=== PATIENT | female | born 1985 | race Caucasian/White ===

== ENCOUNTER 2018-08-17 07:31 | Inpatient (IN) ==
[2018-08-17] MEDS ORDERED: LACTATED RINGER'S 1,000 ML IV PRN (07:45)
[2018-08-17] MEDS ORDERED: OXYTOCIN 30 UNITS/500 ML BAG IV PRN ×2 (07:45→08:48)
[2018-08-17] MEDS ORDERED: LACTATED RINGER'S 1,000 ML IV SCH (07:45)
[2018-08-17 08:02] LABS: Hematocrit (blood only) 41.1 % (37-47); Hemoglobin 14.3 g/dL (12.0-16.0); Mean Corpuscular Volume 90.1 fL (80-100); Mean Platelet Volume 10.4 fL (7.4-10.4); Platelet Count 194 K/uL (130-400); RDW Coefficient of Variation 13.6 % (11.5-14.5); RDW Standard Deviation 44.5 fL (36.4-46.3); Red Blood Count 4.56 M/uL (4.2-5.4); White Blood Count 14.77 K/uL (4.8-10.8)
[2018-08-17 08:06] LABS: Mean Corpuscular Hgb Conc 34.8 g/dL (32-36)
[2018-08-17] MEDS ORDERED: PATIENT'S ALLERGY INFO NEEDS ENTERED SCH (08:30)
[2018-08-17] MEDS: OXYTOCIN 30 UNITS/500ML NSS ONE ×2 (08:33→08:48)
[2018-08-17] MEDS ORDERED: ACETAMINOPHEN 325 MG TAB PO PRN (08:48)
[2018-08-17] MEDS ORDERED: BENZOCAINE 20% AER SPR 82.5 GM CAN EXT PRN (08:48)
[2018-08-17] MEDS ORDERED: SUPERCREAM 0.870% 15 GM JAR EXT PRN (08:48)
[2018-08-17] MEDS ORDERED: ACETAMINOPHEN W/CODEINE #3 1 TAB PO PRN (08:48)
[2018-08-17] MEDS ORDERED: HYDROCORTISONE ACETATE 25 MG SUPP PR PRN (08:48)
[2018-08-17] MEDS ORDERED: IBUPROFEN 600 MG TAB PO PRN (08:48)
[2018-08-17] MEDS ORDERED: OXYCODONE/ACETAMINOPHEN 5mg/325mg TAB PO PRN (08:48)
[2018-08-17] MEDS ORDERED: DIPHTHERIA/TETANUS/PERTUSSIS 0.5 ML SYR/VIAL IM ONE (08:48)
[2018-08-17] MEDS ORDERED: BISACODYL 10 MG SUPP PR PRN (08:48)
[2018-08-17] MEDS ORDERED: PRENATAL VITAMIN 1 TAB PO SCH (09:00)
[2018-08-17] MEDS ORDERED: FERROUS SULFATE 325 MG TAB PO SCH (09:00)
--- NOTE | 2018-08-17 11:12 | Delivery Summary ---
DATE OF OPERATION: 08/17/2018 DELIVERY NOTE: Mrs. Dolan is a 2, para 2, due date is 08/17/2018. She was admitted in active labor. She was fully dilated on the first time I checked her, and the first time I checked her, she had severe bradycardia. This was managed by putting her on her back, giving her mask oxygen, stimulating the head and gradually heart rate came up. After the heart rate came up into the normal range and remained there without stimulation, felt comfortable to rupture the membranes. At that time, moderate meconium was noted. Heart rate continued to stay into an acceptable range with good variability. Contractions were about every 5 minutes. I had her push with each contraction and she was able to bring the head down and pushed the out and about 4 contractions. Once the head was delivered, it was suctioned through the mouth and the nose. Delivered the infant without difficulty. I clamped and cut the cord, collected cord blood. Then, I actually had to run to another room to do another delivery. Before I left the room, I noted that she had a bleeding periurethral laceration. I came back. The placenta was still not delivered with massage and the IV Pitocin running, I delivered the placenta intact. It was meconium stained. I sent it to pathology. There was a midline clitoral laceration right above the urethral opening. I infiltrated this area with local. Then, I used a continuous 3-0 chromic to sew the edges together and to stop the bleeding. After that, I inserted a red rubber Guzmán to make sure that the urethra was patent. I showed the nurses where the urethral opening was in relationship to the suture. Vag exam revealed no hematoma formation or sponges in the vagina. Hemostasis was good. Estimated blood loss was 100 mL. Apgars in my estimation were in the range of 8-9. The patient tolerated the procedure and delivery well. I attest to the content of the Intraoperative Record and any orders documented therein. Any exception s are noted below.
[2018-08-17] MEDS: DOCUSATE SODIUM 100 MG CAP PO SCH (21:16)
[2018-08-18 06:13] LABS: Hematocrit (blood only) 37.6 % (37-47); Hemoglobin 12.9 g/dL (12.0-16.0); Mean Corpuscular Hgb Conc 34.3 g/dL (32-36); Mean Corpuscular Volume 91.9 fL (80-100); Mean Platelet Volume 10.3 fL (7.4-10.4); Platelet Count 197 K/uL (130-400); RDW Coefficient of Variation 13.9 % (11.5-14.5); Red Blood Count 4.09 M/uL (4.2-5.4); White Blood Count 11.62 K/uL (4.8-10.8)
[2018-08-18] MEDS: DOCUSATE SODIUM 100 MG CAP PO SCH (08:21)
--- NOTE | 2018-08-18 09:27 | Obstetrical Progress Note ---
Date of Service August 18, 2018 Subjective Patient is seen and examined. She feels well, no complaints. Likes to be discharged today Ambulating without dizziness Voiding without difficulty Tolerating regular diet with out N&V Bleeding is minimal No fever/ chills/ CP/ SOB/ N&V/ Leg pain Breast feeding without problems Vital Signs Temp Pulse Pulse Pulse Pulse Resp BP 08/18/18 08:00 37.1 C 80 16 08/18/18 04:20 36.3 C L 67 18 08/18/18 00:00 36.9 C 86 18 08/17/18 21:45 37.0 C 106 H 18 08/17/18 16:35 36.7 C 63 18 08/17/18 11:20 36.8 C 67 20 08/17/18 11:00 36.9 C 20 08/17/18 10:55 83 118/57 L 08/17/18 10:39 82 116/62 08/17/18 10:24 86 115/62 08/17/18 10:09 87 116/68 08/17/18 09:54 71 112/70 08/17/18 09:39 78 132/77 BP BP Pulse Ox 08/18/18 08:00 94/60 L 97 08/18/18 04:20 106/68 08/18/18 00:00 111/71 08/17/18 21:45 100/67 08/17/18 16:35 110/67 98 08/17/18 11:20 108/72 08/17/18 11:00 08/17/18 10:55 08/17/18 10:39 08/17/18 10:24 08/17/18 10:09 08/17/18 09:54 08/17/18 09:39 08/18/18 Range/Units 05:41 WBC 11.62 H (4.8-10.8) K/uL RBC 4.09 L (4.2-5.4) M/uL Hgb 12.9 (12.0-16.0) g/dL Hct 37.6 (37-47) % MCV 91.9 (80-100) fL MCH 31.5 (25-34) pg MCHC 34.3 (32-36) g/dL RDW Std Deviation 46.0 (36.4-46.3) fL RDW Coeff of Jenifer 13.9 (11.5-14.5) % Plt Count 197 (130-400) K/uL MPV 10.3 (7.4-10.4) fL PE: General: Alert, orientedx3, NAD Abd: soft, NT, fundus firm, below Umbilicus Perineum intact, Lochia rubra minimal Ext; NT, no edema AP: 32 yo s/p , ppd# 1 VSS Afebrile doing well Continue routine care All questions were answered Discussed when to call D/C home , f/u in office Physical Exam Vital Signs (Past 24 Hours): Last Vital Signs Temp 37.1 C 08/18/18 08:00 Pulse 80 08/18/18 08:00 Resp 16 08/18/18 08:00 BP 94/60 L 08/18/18 08:00 Pulse Ox 97 08/18/18 08:00
[2018-08-18] MEDS ORDERED: BISACODYL 5 MG TABEC PO SCH (20:00)
== END 2018-08-18 18:40 | disposition home or self-care (01) | DRG 807 ==
LOC: OPB 07:31 → 4S1 07:34 → 4S2 11:37

== ENCOUNTER 2021-11-10 08:07 | Inpatient (IN) ==
--- NOTE | 2021-11-01 15:32 | Anesthesiology Consultation ---
Date of Service November 01, 2021 Assessment & Plan (1) Encounter for pre-operative examination: - COVID screening: Per assessment on 11/01: No known COVID-19 positive contacts or current COVID-19 related symptoms. Travel screen negative. Patient vaccinated . Surgeon arranging preop COVID testing. Awaiting results. - Check test AM DOS Chart Review Chart Review: Acceptable Risk for Surgery and Patient NOT seen in Pre Admission Testing History Surgery Operation Date: 11/10/21 09:45 Proposed Procedures p Total Laparoscopic Hysterectomy, Bilateral Salpingectomy, Cystoscopy, Possible Laparotomy - Arron Sams MD Height/Weight Height: 5 ft 8.75 in Weight: 72.575 kg Allergies Allergy/AdvReac Type Severity Reaction Status Date / Time amoxicillin Allergy Mild Hives Verified 11/01/21 14:40 Medications Home Medications Medication Instructions Recorded Confirmed Last Taken L.acidophilus,rhamnosus-B.breve-S.thermophilus 1 tab PO QAM 11/01/21 11/01/21 Unknown 3 billion cell chew tab biotin 1 mg capsule 1 mg PO DAILY 11/01/21 11/01/21 Unknown bupropion HCl 150 mg tablet,12 hr 300 mg PO QAM 11/01/21 11/01/21 Unknown sustained-release (Wellbutrin SR) escitalopram oxalate 20 mg tablet 20 mg PO QAM 11/01/21 11/01/21 Unknown (Lexapro) magnesium oxide 250 mg PO QAM 11/01/21 11/01/21 Unknown multivitamin 1 cap PO QAM 11/01/21 11/01/21 Unknown vitamin B complex 1 cap PO DAILY 11/01/21 11/01/21 Unknown Past Medical History Medical History (Updated 11/01/21 @ 15:31 by Ioana Szymanski) Anxiety Chronic pelvic pain in female Endometriosis History of COVID-19 Dx 05/2021 - no symptoms depression Spontaneous Past Family History Family History Sister Diabetes Aunt Diabetes Past Surgical History Surgical History H/O knee surgery left History of tonsillectomy Social History Smoking Status: Former smoker Do You Dip or Chew Tobacco: No Hx Alcohol Use: Yes Alcohol type: beer and wine alcohol intake frequency: a few times a week Hx Substance Use: No substance use type: does not use Testing Laboratory Results 10/31/21 WBC 6.96 H/H 14.3/42.6 PLATELETS 304 SODIUM 140 POTASSIUM 4.6 CHLORIDE 103 CO2 25 BUN 17 CREATININE 0.9 GLUCOSE 115
[~2021-11-10 08:07] MED LIST: ALLERGY Noted to ORDERED Medication SCH; LACTATED RINGER'S 1,000 ML IV SCH; LR 15ML/HR IV SCH
[2021-11-10] MEDS ORDERED: BUPIVACAINE 0.5 % 5 MG/1 ML MPF 30ML VIAL ONE (08:53)
[2021-11-10] MEDS ORDERED: EPINEPHrine INJ 1 MG/ML AMP ONE (08:53)
[2021-11-10] MEDS ORDERED: fentaNYL citrate 100 MCG/2 ML VIAL IV PRN (09:00)
[2021-11-10] MEDS ORDERED: ONDANSETRON INJ 2 MG/ML 2 ML VIAL IV PRN ×2 (09:00→12:25)
[2021-11-10] MEDS ORDERED: ATROPINE SULFATE 0.1 MG/ML 10ML SYR IV PRN (09:00)
[2021-11-10] MEDS ORDERED: ePHEDrine sulfate 50 MG/ML AMP IV PRN (09:00)
--- NOTE | 2021-11-10 09:02 | History & Physical Bridge Note ---
Date of Service November 10, 2021 History & Physical Bridge Note I have examined the patient, reviewed the History & Physical and in the interval since the performance of the History & Physical I have noted the following changes of clinical significance: no changes noted
[2021-11-10] MEDS ORDERED: MIDAZOLAM HCL 1 MG/ML 2ML VIAL ONE (09:07)
[2021-11-10] MEDS ORDERED: LIDOCAINE 2% 2 ML VIAL/AMP(20MG/ML) INFIL ONE (09:07)
[2021-11-10] MEDS ORDERED: ONDANSETRON INJ 2 MG/ML 2 ML VIAL ONE ×2 (09:07→11:26)
[2021-11-10] MEDS ORDERED: PROPOFOL IV EMULSION 10 MG/ML 20 ML VIAL IV ONE (09:07)
[2021-11-10] MEDS ORDERED: DEXAMETHASONE SOD INJ 4 MG/ML VIAL ONE (09:07)
[2021-11-10] MEDS ORDERED: ROCURONIUM BROMIDE 10 MG/ML 5 ML VIAL IV ONE (09:07)
[2021-11-10] MEDS ORDERED: fentaNYL citrate 100 MCG/2 ML VIAL ONE (09:07)
[2021-11-10] MEDS ORDERED: SCOPOLAMINE 1 MG TDSY TD ONE (09:12)
[2021-11-10] MEDS ORDERED: ACETAMINOPHEN 1000 MG/100 ML IV IV ONE (09:14)
[2021-11-10 09:22] LABS: Pregnancy Test, Serum Negative (Negative)
[2021-11-10] MEDS ORDERED: ceFAZolin 330 MG/ML 1 GM VIAL ONE ×3 (09:50→09:55)
[2021-11-10] MEDS ORDERED: ePHEDrine sulfate 50 MG/ML AMP ONE (10:09)
[2021-11-10] MEDS ORDERED: FLOSEAL HEMOSTATIC MATRIX 10ML TOP ONE (10:29)
[2021-11-10] MEDS ORDERED: GLYCOPYRROLATE 0.2 MG/ML VIAL ONE (11:12)
[2021-11-10] MEDS ORDERED: KETOROLAC 30 MG/ML VIAL ONE (11:12)
[2021-11-10] MEDS ORDERED: NEOSTIGMINE METHYLSULFATE 1 MG/ML 10ML VIAL ONE (11:12)
[2021-11-10] MEDS ORDERED: HYDROmorphone INJ 2 MG/ML SYR/VIAL ONE (11:13)
[2021-11-10] MEDS ORDERED: IBUPROFEN 600 MG TAB PO PRN (12:25)
[2021-11-10] MEDS ORDERED: PROMETHAZINE HCL 25 MG in SODIUM CHLORIDE 0.9% 50 ML IV PRN (12:25)
[2021-11-10] MEDS ORDERED: PROMETHAZINE HCL 12.5 MG in SODIUM CHLORIDE 0.9% 50 ML IV PRN (12:25)
[2021-11-10] MEDS ORDERED: oxyCODONE/ACETAMINOPHEN 5mg/325mg TAB PO PRN ×2 (12:25)
[2021-11-10] MEDS ORDERED: SIMETHICONE 80 MG CHEW PO PRN (12:25)
[2021-11-10] MEDS ORDERED: MAGNESIUM HYDROXIDE SUSP 30 ML UDC PO PRN (12:25)
[2021-11-10] MEDS ORDERED: ZOLPIDEM TARTRATE 5 MG TAB PO PRN (12:25)
[2021-11-10] MEDS ORDERED: KETOROLAC 30 MG/ML VIAL IV PRN (12:25)
--- NOTE | 2021-11-10 12:25 | Post Operative Brief Note ---
Immediate Post Op Note v1 Date of Surgery November 10, 2021 Pre & Post Diagnosis Operation Date: 11/10/21 09:50 Pre-Op Diagnosis: Chronic Pelvic Pain Post-Op Diagnosis: Chronic Pelvic Pain I identified the patient and participated in the time-out.: Yes Procedure Operation Date: 11/10/21 09:50 Actual Procedures p Total Laparoscopic Hysterectomy, Bilateral Salpingectomy, Cystoscopy(Not Applicable) - Arron Sams MD Surgeon Arron Sams MD Button Cutting Machine Operator kerline chase Estimated Blood Loss 5 Findings Consistent with Post-Op Diagnosis Drains Guzmán Catheter (200ml urine output)
[2021-11-10] MEDS ORDERED: LACTATED RINGER'S 1,000 ML IV SCH (12:30)
--- NOTE | 2021-11-10 13:59 | Anesthesiology Progress Note ---
Date of Service November 10, 2021 Anesthesia Post Procedure Vital Signs Vital Signs: Temp Pulse Pulse Resp BP Pulse Ox 11/10/21 13:45 97.5 F L 71 16 97/60 L 98 11/10/21 13:30 80 16 94/56 L 100 11/10/21 13:15 71 13 94/57 L 99 11/10/21 13:00 72 14 97/57 L 98 11/10/21 12:50 97.0 F L 80 15 95/54 L 95 11/10/21 12:40 77 16 91/57 L 96 11/10/21 12:30 83 16 103/63 96 11/10/21 12:20 76 16 101/65 100 11/10/21 12:14 97.7 F 85 16 99/66 L 98 11/10/21 08:48 98.4 F 59 L 18 111/77 98 Transfer of Care Handoff Completed per policy Notes Mental Status: alert / awake / arousable and participated in evaluation Patient Amnestic to Procedure: Yes Nausea / Vomiting: adequately controlled Pain: adequately controlled Airway Patency, RR, SpO2: stable & adequate BP & HR: stable & adequate Hydration State: stable & adequate Anesthetic Complications: no major complications apparent and Pt Satisfied with anesthetic care
[2021-11-10] MEDS: CHECK SCOPOLAMINE PATCH PLACEMENT SCH (16:55)
--- NOTE | 2021-11-10 18:26 | Operative Report (OR) ---
DATE OF SURGERY: 11/10/2021. INDICATION FOR SURGERY: This is a 35-year-old with chronic pelvic pain, failed medical therapy. POSTOPERATIVE DIAGNOSES: Chronic pelvic pain, failed medical therapy. SURGEON: Arron Sams MD. PRODUCTION BORING MACHINE OPERATOR: Beckie Cotton PA-C ATTESTATION FOR PRODUCTION BORING MACHINE OPERATOR: Rabbit Dresser was necessary to help with retraction and manipulation of instr uments in order to provide for safe surgery. SURGERY PERFORMED: Total laparoscopic hysterectomy with bilateral salpingectomy and cystoscopy. ANESTHESIA: General. DRAINS: None. ESTIMATED BLOOD LOSS: 5 mL INTRAVENOUS FLUIDS: 1400 mL URINE OUTPUT: 200 mL of clear urine at the end of procedure. SPECIMEN: Uterus with cervix, left and right fallopian tube. INTRAOPERATIVE COMPLICATIONS: None. PATIENT CONDITION: Stable. DISPOSITION: Postanesthesia care unit. ATTESTATION: I performed the entire procedure. FINDINGS: Normal female escutcheon. No lesions on the vagina or vulva, cervix appeared grossly norm al. Laparoscopic findings shows uterus was about 6 to 8 weeks' size. Left and right adnexa appeared grossly normal. There were no endometriosis implants seen in the pelvis or abdomen. Rest of the ab dominopelvic exam was unremarkable. DESCRIPTION OF PROCEDURE: The patient was taken to the operating room where she was prepped and drap ed in normal sterile fashion in dorsal lithotomy position. Timeout was called. Guzmán catheter was p laced in the bladder. A weighted speculum was placed in the vagina. Tobias retractor was used to retr act the anterior part of the vagina. A small size VCare uterine manipulator was placed in the uterus and a suture was used to suture the device to the cervix and this was to help manipulate the uterus during laparoscopy. Attention was paid to the abdominal part of the procedure where a supraumbilical incision was made wi th a scalpel. Fascia was grabbed. A Veress needle was introduced into the abdomen at a 45-degree an gle while tenting up the abdomen. Intraabdominal placement was confirmed with a water-filled syringe . Water drop and suction test was performed. Abdomen was insufflated with 2 liters of CO2 gas. Davina ess needle was removed and a nonbladed 5 mm trocar attached to a laparoscope was introduced into the abdominal cavity. This was done under direct visualization. Once inside the abdomen, the findings w ere as dictated above. Three more accessory ports were placed under direct visualization. Two 11 mm ports were placed on the left and a 5 mm port placed on the right. General appearance of the pelvis . was as dictated above. As stated above, there were no significant pelvic adhesions. The uterus, the left and right fallopian tube, the bladder, ureters, uterosacrals, psoas of the bowel, cecum were identified. LigaSure was passed through the left accessory port. The left fallopian tube was ident ified and grabbed 4 cm from the cornua of the uterus with the LigaSure and transected. This was foll owed by opening of the left anterior leaf of the broad ligament. This allowed for fenestration of th e posterior leaf of the broad ligament. Mid section of the left fallopian tube, utero-ovarian and me sovarium pedicles were transected as well. Same procedure was performed on the contralateral side on the right. The anterior broad ligament dissection was carried out to the mid-section of the vesicouterine perito neum over the bladder using the Harmonic scalpel. Same procedure was carried out from the contralate ral side. The posterior broad ligament peritoneum was carefully dissected also from both sides over the uterosacral arch in order to display the ureters laterally. Using traction and countertraction, the [place] retractor and irrigation probe was used to further dissect the bladder off the lower seg ment of the uterus. Bladder pillars and pubovesical fascia was dissected as well. Harmonic scalpel was used to obtain hemostasis when needed. Uterine manipulator was now palpable over the vaginal tis yannick. The right uterine pedicles were skeletonized and coagulated with the LigaSure. Good hemostasis was obtained. Same procedure was performed on the contralateral side. The cardinal ligament was tr ansected on both sides. Once good hemostasis was obtained, colpotomy was performed using the LigaSur e hook from both sides. The uterus was removed through the vagina while still attached to the uterin e manipulator. A glove with gauze was placed in the vagina to obtain a pneumoperitoneum. Using a gr asper, the left fallopian tube was placed anteromedially and transected. Same procedure was performe d on the contralateral side. EndoStitch device was passed through the 11 mm port on the left and using the [place] grasper for tr action, the colpotomy closure was performed. The uterosacral ligaments were incorporated into the cl osure in order to decrease the risks of prolapse. Lapra-Tys were used with the EndoStitch. Attention was paid to the cystoscopy part of the procedure where a 70-degree scope was placed into th e bladder. After that, Guzmán catheter was removed. Inspection of the bladder shows no masses or les ions. The entire bladder was carefully examined. The bubble was seen superiorly in the bladder. Rambo th left and right urethral orifices were seen. Urine was seen draining through the cervix without di fficulty. The scope was removed from the bladder. Attention was paid back to the abdominal part of the procedure. A Agustín-Adelina device was used to close the 10 mm ports. The rest of the incision was closed with Dermabond. All instruments were removed from the abdomen and the vagina and accounted for x2 including sponges, needles, and retractors. The patient is sent to recovery in stable condition. Job ID: [id number]
[2021-11-10] MEDS: DOCUSATE SODIUM 100 MG CAP PO SCH (21:31)
[2021-11-11] MEDS: CHECK SCOPOLAMINE PATCH PLACEMENT SCH ×2 (00:24→08:00)
[2021-11-11] MEDS: ACETAMINOPHEN 325 MG TAB PO PRN ×2 (00:25→07:58)
[2021-11-11 06:51] LABS: Basophils # (auto) 0.03 K/uL (0-0.2); Basophils % (auto) 0.4 %; Eosinophils # (auto) 0.08 K/uL (0-0.50); Hematocrit (blood only) 36.8 % (34.1-44.9); Hemoglobin 12.2 g/dl (12.0-16.0); Immature Granulocytes # (auto) 0.02 K/uL (0.00-0.02); Immature Granulocytes % (auto) 0.3 %; Lymphocytes # (auto) 1.99 K/uL (1.2-3.4); Lymphocytes % (auto) 25.6 %; Mean Corpuscular Hemoglobin 30.8 pg (25.0-34.0); Mean Corpuscular Hgb Conc 33.2 g/dL (32.0-36.0); Mean Corpuscular Volume 92.9 fL (80.0-100.0); Mean Platelet Volume 9.9 fL (9.4-12.3); Monocytes # (auto) 0.97 K/uL (0.24-0.82); Monocytes % (auto) 12.5 %; Neutrophils # (auto) 4.67 K/uL (1.4-6.5); Neutrophils % (auto) 60.2 %; Platelet Count 229 K/uL (130-400); RDW Standard Deviation 44.8 fL (36.4-46.3); Red Blood Count 3.96 M/uL (3.93-5.22); White Blood Count 7.76 K/ul (4.8-10.8)
[2021-11-11 07:15] LABS: BUN Creatinine Ratio 13.8 (10-20); Creatinine Clr Calc Pharmacy 100.7 ml/min; Est GFR (African American) 109.9 ml/min; Est GFR (Non-African American) 94.9 ml/min; Potassium 4.1 mmol/L (3.5-5.1)
[2021-11-11] MEDS: DOCUSATE SODIUM 100 MG CAP PO SCH (07:59)
[2021-11-11] MEDS ORDERED: buPROPion SR 150 MG TABCR PO SCH (09:00)
[2021-11-11] MEDS ORDERED: ESCITALOPRAM OXALATE 20 MG TAB PO SCH (09:00)
--- NOTE | 2021-11-11 09:47 | Obstetrical Progress Note ---
Date of Service November 11, 2021 Assessment & Plan (1) S/P laparoscopic hysterectomy: POD #1 pt doing well d/c home with instrcutions Subjective Review of Systems All systems reviewed & are unremarkable except as noted in HPI & below Physical Exam Constitutional WD/WN, vitals as above Eyes PERRL, conjunctivae normal, anicteric sclerae ENMT external ear and nose normal, oropharynx normal Neck trachea midline, no thyromegaly Respiratory normal respiratory effort, lungs clear to auscultation Cardiovascular RRR, no murmur, no edema Chest (Breasts) normal inspection/palpation of breasts Gastrointestinal (Abdomen) normal bowel sounds, soft, nontender, no hepatosplenomegaly Musculoskeletal no cyanosis or clubbing, extremities motor strength 5/5 Skin + incision (Incision clean,dry and intact) Neurologic patellar DTR's 2+ bilat, sensation intact Psychiatric A+Ox3, euthymic affect Genitourinary no vaginal lesions, no adnexal mass Lymphatic no cervical or axillary lymphadenopathy Results & Data ([facility]) Vital Signs (Past 12 Hours) Vital Signs Temp Pulse Resp BP Pulse Ox 11/11/21 04:30 37.3 C 65 16 105/66 99 11/11/21 00:15 37.0 C 58 L 16 97/62 L 97
--- NOTE | 2021-11-11 12:43 | Discharge Summary (DS) ---
DATE OF ADMISSION: 11/10/2021. DATE OF DISCHARGE: 11/11/2021. CHIEF COMPLAINT: Chronic pelvic pain, unresponsive to medical therapy. HISTORY OF PRESENT ILLNESS: This is a 35-year-old G2, P0, who underwent laparoscopic total hysterect nayely with bilateral salpingectomy and cystoscopy for chronic pelvic pain that has been unresponsive to many years of medical treatment. The patient did well. Details of surgery is in the surgical note. She was kept in observation until this morning. She is being discharged home in stable condition t his morning. PAST MEDICAL HISTORY: No history of diabetes, hypertension, or asthma. PAST SURGICAL HISTORY: History of dental surgery and tonsillectomy. FAMILY HISTORY: Endometriosis. No other history is significant. SOCIAL HISTORY: The patient is and lives with spouse and children. Denies tobacco, drug, or alcohol use. ALLERGIES: THE PATIENT IS ALLERGIC TO AMOXICILLIN, SHE REPORTS HIVES ON AMOXICILLIN. REVIEW OF SYSTEMS: Negative except as dictated above. PHYSICAL EXAMINATION: VITAL SIGNS: On 11/11/2021 showed blood pressure of 105/66, pulse of 65, respirations 16, temperatur e 37.3. HEART: S1 and S2, regular rhythm and rate. LUNGS: Clear to auscultation bilaterally. ABDOMEN: Nontender, nondistended, positive bowel sounds. Incision sites are clean, dry, and intact. EXTREMITIES: No cyanosis, clubbing or edema. LABORATORY DATA: This morning showed hemoglobin of 12.2, hematocrit of 36.8, platelets of 229. CONDITION ON DISCHARGE: Stable. OPERATIONS: Total laparoscopic hysterectomy with bilateral salpingectomy and cystoscopy. DISCHARGE DIAGNOSIS: Postoperative after laparoscopic hysterectomy. PLAN ON DISCHARGE: The patient is discharged home with instructions regarding activity, diet, follow up appointment, and medications. Job ID: [id number]
== END 2021-11-11 11:29 | disposition home or self-care (01) | DRG 983 ==
LOC: ASU 08:07 → 4E1 12:55
DX: F41.9 Anxiety disorder, unspecified; R10.2 Pelvic and perineal pain; Z79.899 Other long term (current) drug therapy; F53.0 Postpartum depression; G89.29 Other chronic pain; Z88.0 Allergy status to penicillin; Z87.891 Personal history of nicotine dependence